=== PATIENT | male | born 1995 | race Caucasian/White ===

== ENCOUNTER → 2017-05-24 | Outpatient (CLI) | payer BC ==
[~2017-05-24] MED LIST: HYDACE5 PO; MUPI2TO TOP; RXCLIN PO; SULTRIDS PO
[2017-05-24 11:41] LABS: Specimen Source URINE
[2017-05-25 02:09] LABS: Source Urine
== END ==
LOC: LAB 10:25 → LAB SHORT 10:25
PROVIDERS: Nurse Practitioner
DX: R30.0 Dysuria (principal)
CPT/HCPCS: 87491; 87591